=== PATIENT | female | born 1940 | race Caucasian/White ===

== ENCOUNTER 2019-10-05 09:54 | Emergency (ER) | payer MEDICARE, OTHER ==
[~2019-10-05] VITALS: Ht 162.6 cm; Wt 54.4 kg
--- NOTE | 2019-10-05 09:58 | NUR ---
Dr. Borges at bedside for MSE
--- NOTE | 2019-10-05 10:05 | NUR ---
Patient ambulating with steady gait. A&O x4. [place] speaking only. Daughter at bedside to translate for patient. c/o CP that started today. pain does not radiate. Daughter also states that patient has been having SOB and weakness for the past couple of days. Patient able to make needs known / follow commands. cough noted as well but per daughter, patient is a smoker and cough has been persistent and not getting worse. Breathing even and unlabored. Denies any N / V / D, COBB, Blurred vision. Safety precautions implemented. Bed low, S/r up x2
[2019-10-05] MEDS ORDERED: LEVO25TA9 PO (10:13)
[2019-10-05] MEDS ORDERED: ALPR0.25 PO (10:13)
[2019-10-05] MEDS ORDERED: OLME20TA13 PO (10:13)
[2019-10-05 10:27] LABS: POTASSIUM 4.1 mmol/L (3.5-5.1)
[2019-10-05 10:33] LABS: BASOPHILS % (AUTO) 0.5 % (0.0-2.0); EOSINOPHILS % (AUTO) 0.8 % (0.0-7.0); HEMATOCRIT 36.6 % (31.2-41.9); HEMOGLOBIN 12.6 g/dL (10.9-14.3); LYMPHOCYTES # (AUTO) 0.8 K/uL (20.0-40.0); LYMPHOCYTES % (AUTO) 20.1 % (20.5-51.5); MEAN CORPUSCULAR HEMOGLOBIN 35.7 uug (24.7-32.8); MEAN CORPUSCULAR HGB CONC 34 g/dL (32.3-35.6); MONOCYTES # (AUTO) 0.4 K/uL (2.0-10.0); MONOCYTES % (AUTO) 9.9 % (0.0-11.0); NEUTROPHILS # (AUTO) 2.9 K/uL (1.8-8.9); NEUTROPHILS % (AUTO) 68.7 % (38.5-71.5); PLATELET COUNT (AUTO) 214 K/uL (179-408); RED BLOOD CELL COUNT(AUTO) 3.52 MIL/uL (3.63-4.92); WHITE BLOOD COUNT (AUTO) 4.2 K/uL (3.8-11.8)
[2019-10-05 10:41] LABS: BILIRUBIN,DIRECT 0.2 mg/dL (0.0-0.2); BILIRUBIN,TOTAL 0.7 mg/dL (0.2-1.0); TOTAL PROTEIN, SERUM 8.7 g/dL (6.4-8.2)
[2019-10-05 10:50] LABS: FERRITIN 184 ng/mL (8-252); LACTATE DEHYDROGENASE 130 U/L (81-234)
[2019-10-05 10:57] LABS: CREATINE KINASE, TOTAL 43 U/L (26-192)
[2019-10-05] MEDS ORDERED: IV NORMAL SALINE 500 ML IV ONE (11:00)
[2019-10-05] MEDS ORDERED: ASPIRIN 325 MG TABLET PO ONE (11:45)
--- NOTE | 2019-10-05 11:45 | NUR ---
Per daughter at bedside, patient denies any chest pain at this time, just slight weakness and dizziness.
[2019-10-05] MEDS ORDERED: ASPIRIN 325 MG TABLET ONE (11:50)
[2019-10-05] MEDS ORDERED: MECLIZINE HCL 25 MG TABLET ONE (11:59)
[2019-10-05] MEDS ORDERED: MECLIZINE HCL 25 MG TABLET PO ONE (12:00)
--- NOTE | 2019-10-05 12:12 | NUR ---
Patient taken to CT scan in stable condition
--- NOTE | 2019-10-05 12:24 | NUR ---
Patient back from CT scan
--- NOTE | 2019-10-05 14:05 | NUR ---
IV removed. Catheter intact and site benign. Pressure and 4x4 gauze applied to site. No bleeding noted. Patient does not wish to proceed with medical care recommended by Dr. Borges. Patient given information related to possible complications, up to and including , which could occur as a result of leaving the hospital at this time. Patient verbalizes understanding of risks involved due to leaving against medical advice. Patient has signed AMA form. Patient ambulating with steady gait. NAD noted
[2019-10-05 14:23] VITALS: BP 150/79
== END 2019-10-05 14:05 | disposition left against medical advice (07) ==
LOC: ER 09:54
DX: R07.2 Precordial pain (principal); R42 Dizziness and giddiness; F17.210 Nicotine dependence, cigarettes, uncomplicated; Z20.828 Contact with and (suspected) exposure to other viral communicable diseases; I70.0 Atherosclerosis of aorta; R94.4 Abnormal results of kidney function studies
CPT/HCPCS: 70030-TC; 70450; 71045; 71250; 83605; 83615; 84443; 85025; 85730; 86140; 87040; 87400; 93005; A4663; J7040; J8597; U0003-CS

== ENCOUNTER 2024-07-10 18:16 | Inpatient (IN) | payer MEDICARE, OTHER ==
[~2024-07-10] VITALS: Ht 154.9 cm; Wt 55.8 kg
[~2024-07-10 18:16] MED LIST: ALPR0.25 PO; LEVO25TA9 PO; OLME20TA13 PO
[2024-07-10] MEDS ORDERED: MEMA1CAP4 PO (18:39)
[2024-07-10] MEDS ORDERED: FOLI1TAB27 PO (18:39)
[2024-07-10] MEDS ORDERED: OLME1TAB92 PO (18:39)
[2024-07-10] MEDS ORDERED: ICOS1CAP PO (18:39)
[2024-07-10] MEDS ORDERED: LEVO100T10 PO (18:39)
[2024-07-10] MEDS ORDERED: ASPI-869 PO (18:39)
[2024-07-10 19:10] LABS: BASOPHILS % (AUTO) 1.2 % (0.0-2.0); EOSINOPHILS % (AUTO) 0.8 % (0.0-7.0); HEMATOCRIT 35.4 % (31.2-41.9); HEMOGLOBIN 11.9 g/dL (10.9-14.3); LYMPHOCYTES # (AUTO) 0.6 K/uL (0.8-4.8); LYMPHOCYTES % (AUTO) 16.4 % (20.5-51.5); MEAN CORPUSCULAR HEMOGLOBIN 36.4 uug (24.7-32.8); MEAN CORPUSCULAR HGB CONC 34 g/dL (32.3-35.6); MEAN CORPUSCULAR VOLUME 108.1 fL (75.5-95.3); MONOCYTES # (AUTO) 0.4 K/uL (0.1-1.30); MONOCYTES % (AUTO) 11.3 % (0.0-11.0); NEUTROPHILS # (AUTO) 2.6 K/uL (1.8-8.9); NEUTROPHILS % (AUTO) 70.3 % (38.5-71.5); PLATELET COUNT (AUTO) 165 K/uL (179-408); RED BLOOD CELL COUNT(AUTO) 3.27 MIL/uL (3.63-4.92); RED CELL DISTRIBUTION WIDTH 12.7 % (12.3-17.7); WHITE BLOOD COUNT (AUTO) 3.7 K/uL (3.8-11.8)
[2024-07-10 19:27] LABS: DIFFERENTIAL COMMENT 1
[2024-07-10] MEDS ORDERED: ONDANSETRON 4 MG/2 ML VIAL ONE (19:28)
[2024-07-10 19:32] LABS: CALCIUM 9.9 mg/dL (8.5-10.1); CARBON DIOXIDE 26 mmol/L (21-32); CHLORIDE 105 mmol/L (98-107); CREATININE 1.7 mg/dL (0.6-1.3); GLUCOSE 101 mg/dL (74-106); POTASSIUM 3.1 mmol/L (3.5-5.1); SODIUM SERUM 144 mmol/L (136-145); UREA NITROGEN, BLOOD 70 mg/dL (7-18)
[2024-07-10 19:33] LABS: AMMONIA < 10 umol/L (11-32)
[2024-07-10 19:37] LABS: ETHANOL < 3 MG/DL (0-10)
[2024-07-10 19:40] LABS: ALANINE AMINOTRANSFERASE 22 U/L (14-59); ALBUMIN 3.7 g/dL (3.4-5.0); ALKALINE PHOSPHATASE 64 U/L (50-136); ASPARTATE AMINOTRANSFERASE 25 U/L (15-37); BILIRUBIN,DIRECT 0.2 mg/dL (0.0-0.2); BILIRUBIN,TOTAL 0.8 mg/dL (0.2-1.0); MAGNESIUM 2.2 mg/dL (1.8-2.4)
[2024-07-10] MEDS: ONDANSETRON 4 MG/2 ML VIAL IV ONE (19:55)
[2024-07-10] MEDS: IV NORMAL SALINE 1000 ML BAG IV ONE (20:00)
[2024-07-10 20:02] LABS: THYROID STIMULATING HORMONE 0.392 mIU/mL (0.358-3.740)
[2024-07-10 22:01] LABS: *BILIRUBIN,URIN NEGATIVE (NEGATIVE); *COLOR,URINE YELLOW (YELLOW); *KETONES,URINE 2+ (NEGATIVE); *PROTEIN,URINE 2+ (NEGATIVE); *UROBILINOGEN,URINE 0.2 E.U./dl (NORMAL); LEUKOCYTE ESTERASE ,URINE NEGATIVE (NEGATIVE); NITRITE, URINE NEGATIVE (NEGATIVE); PH,URINE 5.5 (5.0-8.0); UGLUCOSE NEGATIVE (NEGATIVE)
[2024-07-10 22:06] LABS: *BLOOD, URINE TRACE (NEGATIVE); *CLARITY,URINE SLIGHTLY CLOUDY (CLEAR)
[2024-07-10 22:16] LABS: BACTERIA,URINE FEW /HPF (NONE SEEN); RBC,URINE 0-3 /HPF (0-3); SQUAMOUS EPITHELIAL CELL,UR MODERATE /HPF (NONE SEEN)
[2024-07-10] MEDS ORDERED: ONDANSETRON 4 MG/2 ML VIAL IV PRN (23:15)
[2024-07-10] MEDS ORDERED: ALBUTEROL SULFATE 2.5 MG/ 0.5 ML NEBU NEB PRN (23:15)
[2024-07-10] MEDS ORDERED: ACETAMINOPHEN 325 MG TABLET PO PRN (23:15)
[2024-07-11 00:45] VITALS: BP 120/73; TEMP 98
[2024-07-11] MEDS ORDERED: CEFTRIAXONE /D5W 50ML IVPB **ER PYXIS IV ONE (01:17)
[2024-07-11] MEDS: CEFTRIAXONE 1 G in IV DEXTROSE 5% 50 ML IV SCH (01:30)
[2024-07-11 04:00] VITALS: BP 96/65; TEMP 98.6; O2SAT 99
[2024-07-11] MEDS ORDERED: ALBUTEROL SULFATE 2.5 MG/3 ML NEBU NEB PRN (05:00)
[2024-07-11 08:00] VITALS: BP 116/57; TEMP 97.5; O2SAT 97
[2024-07-11 08:16] LABS: EOSINOPHILS # (AUTO) 0.1 K/uL (0.0-0.7); EOSINOPHILS % (AUTO) 1.5 % (0.0-7.0); HEMATOCRIT 35.9 % (31.2-41.9); HEMOGLOBIN 12.2 g/dL (10.9-14.3); LYMPHOCYTES # (AUTO) 0.7 K/uL (0.8-4.8); LYMPHOCYTES % (AUTO) 20.3 % (20.5-51.5); MEAN CORPUSCULAR HEMOGLOBIN 36.6 uug (24.7-32.8); MEAN CORPUSCULAR HGB CONC 34 g/dL (32.3-35.6); MONOCYTES # (AUTO) 0.4 K/uL (0.1-1.30); MONOCYTES % (AUTO) 12.8 % (0.0-11.0); NEUTROPHILS # (AUTO) 2.3 K/uL (1.8-8.9); NEUTROPHILS % (AUTO) 64.4 % (38.5-71.5); PLATELET COUNT (AUTO) 150 K/uL (179-408); RED BLOOD CELL COUNT(AUTO) 3.32 MIL/uL (3.63-4.92); RED CELL DISTRIBUTION WIDTH 12.8 % (12.3-17.7); WHITE BLOOD COUNT (AUTO) 3.5 K/uL (3.8-11.8)
[2024-07-11 08:26] LABS: DIFFERENTIAL COMMENT 1
[2024-07-11 08:51] LABS: IRON, SERUM 58 ug/dL (50-175)
[2024-07-11] MEDS ORDERED: DONEPEZIL HCL PO SCH (09:00)
[2024-07-11] MEDS ORDERED: MEMANTINE HCL PO SCH (09:00)
[2024-07-11] MEDS ORDERED: [UNRECOGNIZED DRUG - OTHER] PO SCH (09:00)
[2024-07-11 09:13] LABS: ALANINE AMINOTRANSFERASE 27 U/L (14-59); ALBUMIN 3.4 g/dL (3.4-5.0); ALKALINE PHOSPHATASE 65 U/L (50-136); ASPARTATE AMINOTRANSFERASE 25 U/L (15-37); BILIRUBIN,TOTAL 0.8 mg/dL (0.2-1.0); CALCIUM 9.2 mg/dL (8.5-10.1); CARBON DIOXIDE 27 mmol/L (21-32); CHLORIDE 106 mmol/L (98-107); CHOLESTEROL 154 mg/dL (<200); CREATININE 1.3 mg/dL (0.6-1.3); GLUCOSE 96 mg/dL (74-106); HDL CHOLESTEROL 40 mg/dL (40-60); MAGNESIUM 1.8 mg/dL (1.8-2.4); PHOSPHOROUS 2.7 mg/dL (2.5-4.9); POTASSIUM 3.1 mmol/L (3.5-5.1); SODIUM SERUM 142 mmol/L (136-145); TOTAL PROTEIN, SERUM 7.8 g/dL (6.4-8.2); TRIGLYCERIDES 98 MG/DL (30-150); UREA NITROGEN, BLOOD 50 mg/dL (7-18)
[2024-07-11] MEDS: PANTOPRAZOLE SODIUM 40 MG TABLET.DR PO SCH (09:14)
[2024-07-11] MEDS: DONEPEZIL 10 MG TABLET PO SCH (09:14)
[2024-07-11] MEDS: FOLIC ACID 1 MG TABLET PO SCH (09:14)
[2024-07-11] MEDS: MEMANTINE HCL 5 MG TABLET PO SCH (09:14)
[2024-07-11] MEDS: CYANOCOBALAMIN 1000 MCG/ML VIAL IM SCH (10:13)
[2024-07-11 10:35] LABS: LIPASE 122 U/L (16-77)
[2024-07-11] MEDS ORDERED: EVOL140P3 SQ (10:52)
[2024-07-11] MEDS ORDERED: AMLO-212 PO (10:52)
[2024-07-11] MEDS ORDERED: PROP10TA10 PO (10:52)
[2024-07-11] MEDS ORDERED: TRAZ-182 PO (10:52)
[2024-07-11] MEDS ORDERED: ESCI10TA PO (10:52)
[2024-07-11 10:54] LABS: THYROID STIMULATING HORMONE 0.288 mIU/mL (0.358-3.740)
[2024-07-11 12:00] VITALS: BP 92/59; TEMP 97.3; O2SAT 98
[2024-07-11] MEDS: PROPRANOLOL HCL 10 MG TABLET PO SCH (12:15)
[2024-07-11] MEDS: POTASSIUM CHLORIDE 20 MEQ TAB.PRT.SR PO ONE (13:15)
[2024-07-11 15:00] VITALS: BP 85/41; TEMP 97.8; O2SAT 97
[2024-07-11] MEDS: IV NORMAL SALINE 500 ML IV ONE (15:52)
[2024-07-11 19:00] VITALS: BP 90/53; TEMP 98.2; O2SAT 99
[2024-07-11] MEDS ORDERED: DOCUSATE SODIUM 250 MG CAPSULE PO SCH (21:00)
[2024-07-11] MEDS: DOCUSATE SODIUM 100 MG CAPSULE PO SCH (21:01)
[2024-07-11] MEDS: TRAZODONE 50 MG TABLET PO SCH (21:01)
[2024-07-12] VITALS: BP 113/46; TEMP 97.4; O2SAT 98
[2024-07-12] MEDS: TEMAZEPAM 15 MG CAPSULE PO PRN (02:42)
[2024-07-12 05:03] VITALS: BP 107/62; TEMP 97.4; O2SAT 96
[2024-07-12 07:49] VITALS: BP 111/52; TEMP 97.7; O2SAT 97
[2024-07-12] MEDS: ESCITALOPRAM OXALATE 10 MG TABLET PO SCH (08:20)
[2024-07-12] MEDS: ASPIRIN EC 81 MG TABLET.DR PO SCH (08:20)
[2024-07-12] MEDS: AMLODIPINE 5 MG TABLET PO SCH (08:21)
[2024-07-12] MEDS ORDERED: ASPIRIN EC 325 MG TABLET.DR PO SCH (09:00)
[2024-07-12 09:51] LABS: BASOPHILS % (AUTO) 0.7 % (0.0-2.0); EOSINOPHILS # (AUTO) 0.1 K/uL (0.0-0.7); HEMATOCRIT 36.9 % (31.2-41.9); HEMOGLOBIN 12.4 g/dL (10.9-14.3); LYMPHOCYTES # (AUTO) 0.9 K/uL (0.8-4.8); LYMPHOCYTES % (AUTO) 22.4 % (20.5-51.5); MEAN CORPUSCULAR HEMOGLOBIN 36.1 uug (24.7-32.8); MEAN CORPUSCULAR HGB CONC 34 g/dL (32.3-35.6); MEAN CORPUSCULAR VOLUME 107.6 fL (75.5-95.3); MONOCYTES # (AUTO) 0.4 K/uL (0.1-1.30); MONOCYTES % (AUTO) 9.6 % (0.0-11.0); NEUTROPHILS # (AUTO) 2.5 K/uL (1.8-8.9); NEUTROPHILS % (AUTO) 65.3 % (38.5-71.5); PLATELET COUNT (AUTO) 166 K/uL (179-408); RED BLOOD CELL COUNT(AUTO) 3.43 MIL/uL (3.63-4.92); RED CELL DISTRIBUTION WIDTH 12.8 % (12.3-17.7); WHITE BLOOD COUNT (AUTO) 3.8 K/uL (3.8-11.8)
[2024-07-12 10:00] LABS: CALCIUM 9.5 mg/dL (8.5-10.1); CARBON DIOXIDE 24 mmol/L (21-32); CHLORIDE 104 mmol/L (98-107); CREATININE 1.1 mg/dL (0.6-1.3); GLUCOSE 98 mg/dL (74-106); POTASSIUM 3.2 mmol/L (3.5-5.1); SODIUM SERUM 141 mmol/L (136-145); UREA NITROGEN, BLOOD 36 mg/dL (7-18)
[2024-07-12 10:26] LABS: DIFFERENTIAL COMMENT 1
[2024-07-12 11:53] VITALS: BP 99/60; TEMP 98.4; O2SAT 96
[2024-07-12 16:30] VITALS: BP 132/64; TEMP 98.1; O2SAT 100
[2024-07-12 19:00] VITALS: BP 107/61; TEMP 97.7; O2SAT 95
[2024-07-12] MEDS: IV NS 1000 ML 1,000 ML IV PRN (23:06)
[2024-07-13 06:00] VITALS: BP 92/45; TEMP 98; O2SAT 96
[2024-07-13 06:45] VITALS: BP 100/52; TEMP 98; O2SAT 96
[2024-07-13 06:47] LABS: BASOPHILS % (AUTO) 0.8 % (0.0-2.0); EOSINOPHILS # (AUTO) 0.1 K/uL (0.0-0.7); EOSINOPHILS % (AUTO) 2.9 % (0.0-7.0); HEMATOCRIT 30.9 % (31.2-41.9); HEMOGLOBIN 10.6 g/dL (10.9-14.3); LYMPHOCYTES # (AUTO) 0.9 K/uL (0.8-4.8); LYMPHOCYTES % (AUTO) 21.1 % (20.5-51.5); MEAN CORPUSCULAR HEMOGLOBIN 36.9 uug (24.7-32.8); MEAN CORPUSCULAR HGB CONC 34 g/dL (32.3-35.6); MEAN CORPUSCULAR VOLUME 107.9 fL (75.5-95.3); MONOCYTES # (AUTO) 0.5 K/uL (0.1-1.30); MONOCYTES % (AUTO) 12.9 % (0.0-11.0); NEUTROPHILS # (AUTO) 2.5 K/uL (1.8-8.9); NEUTROPHILS % (AUTO) 62.3 % (38.5-71.5); PLATELET COUNT (AUTO) 139 K/uL (179-408); RED BLOOD CELL COUNT(AUTO) 2.86 MIL/uL (3.63-4.92); RED CELL DISTRIBUTION WIDTH 12.6 % (12.3-17.7); WHITE BLOOD COUNT (AUTO) 4.1 K/uL (3.8-11.8)
[2024-07-13 07:00] LABS: DIFFERENTIAL COMMENT 1
[2024-07-13 07:06] LABS: CALCIUM 8.7 mg/dL (8.5-10.1); CARBON DIOXIDE 25 mmol/L (21-32); CHLORIDE 109 mmol/L (98-107); CREATININE 1.3 mg/dL (0.6-1.3); GLUCOSE 95 mg/dL (74-106); MAGNESIUM 1.7 mg/dL (1.8-2.4); PHOSPHOROUS 3.7 mg/dL (2.5-4.9); POTASSIUM 3.4 mmol/L (3.5-5.1); SODIUM SERUM 142 mmol/L (136-145); UREA NITROGEN, BLOOD 28 mg/dL (7-18)
[2024-07-13 07:59] VITALS: BP 103/55; TEMP 98.1; O2SAT 99
[2024-07-13] MEDS: MAGNESIUM OXIDE 400 MG TABLET PO ONE (09:40)
[2024-07-13] MEDS: POTASSIUM CHLORIDE 20 MEQ TAB.PRT.SR PO ONE (09:40)
[2024-07-13 11:47] VITALS: BP 104/46; TEMP 98; O2SAT 99
[2024-07-13] MEDS ORDERED: MECO10005 PO (12:55)
[2024-07-13 15:48] VITALS: BP 105/47; TEMP 97.9; O2SAT 99
[2024-07-13 17:00] VITALS: BP 105/47
[2024-07-13] MEDS ORDERED: PANT40TA2 PO (20:39)
[2024-07-13] MEDS ORDERED: ASPI81TA31 PO (20:39)
[2024-07-13] MEDS ORDERED: MEMA5TAB42 PO (20:39)
[2024-07-13] MEDS ORDERED: ONDA4TAB5 IV (20:39)
[2024-07-13] MEDS ORDERED: TEMA15CA5 PO (20:39)
[2024-07-13] MEDS ORDERED: CYAN100085 IM (20:39)
[2024-07-13] MEDS ORDERED: DONE10TA11 PO (20:39)
[2024-07-13] MEDS ORDERED: DOCU-141 PO (20:39)
[2024-07-13] MEDS ORDERED: FOLI1TAB94 PO (20:39)
[2024-07-13] MEDS ORDERED: ALBU2.5V38 NEB (20:39)
[2024-07-13] MEDS ORDERED: ACET325T53 PO (20:39)
== END 2024-07-13 18:28 | DRG 682 ==
LOC: ER 18:47 → MEDSURG3 20:50 → TELE3 07-11 00:35 → MEDSURG3 07-12 10:56
PROVIDERS: ADMIT Internal Medicine; ATTEND Internal Medicine
DX: N17.0 Acute kidney failure with tubular necrosis (principal); G93.41 Metabolic encephalopathy; I21.4 Non-ST elevation (NSTEMI) myocardial infarction; F03.93 Unspecified dementia, unspecified severity, with mood disturbance; E86.0 Dehydration; D51.9 Vitamin B12 deficiency anemia, unspecified; E87.6 Hypokalemia; E78.5 Hyperlipidemia, unspecified; E89.0 Postprocedural hypothyroidism; Z79.890 Hormone replacement therapy; F17.210 Nicotine dependence, cigarettes, uncomplicated; Z91.199 Patient's noncompliance with other medical treatment and regimen due to unspecified reason; I70.0 Atherosclerosis of aorta; I12.9 Hypertensive chronic kidney disease with stage 1 through stage 4 chronic kidney disease, or unspecified chronic kidney disease; N18.9 Chronic kidney disease, unspecified; R79.89 Other specified abnormal findings of blood chemistry; D72.819 Decreased white blood cell count, unspecified; D69.6 Thrombocytopenia, unspecified; K57.30 Diverticulosis of large intestine without perforation or abscess without bleeding; M51.35 Other intervertebral disc degeneration, thoracolumbar region; I25.10 Atherosclerotic heart disease of native coronary artery without angina pectoris; F32.A Depression, unspecified; Z79.899 Other long term (current) drug therapy
CPT/HCPCS: 36415; 70450; 71045; 83550; 83690; 83735; 84100; 84443; 84484; 85025; 85730; 87086; 93307; A4606; A4663; G0378; G0480; J0696; J2405; J3420; J7040

== ENCOUNTER 2024-07-13 11:31 | Inpatient (IN) | payer MEDICARE, OTHER ==
[2024-07-12 21:06] VITALS: BP 132/64
[2024-07-12 21:45] VITALS: BP 132/64
[~2024-07-13] VITALS: Ht 154.9 cm; Wt 54.2 kg
[~2024-07-13 11:31] MED LIST changes: -ALPR0.25 PO; +AMLO-212 PO; +ASPI-869 PO; +ESCI10TA PO; +EVOL140P3 SQ; +FOLI1TAB27 PO; +ICOS1CAP PO; +LEVO100T10 PO; -LEVO25TA9 PO; +MEMA1CAP4 PO; +OLME1TAB92 PO; -OLME20TA13 PO; +PROP10TA10 PO; +TRAZ-182 PO
[2024-07-13] MEDS ORDERED: MECO10005 PO (12:55)
[2024-07-13] MEDS ORDERED: REMEDY ESSENTIAL ZINC PASTE 113 GM TOP PRN (20:15)
[2024-07-13] MEDS ORDERED: ONDA4TAB5 IV (20:39)
[2024-07-13] MEDS ORDERED: FOLI1TAB94 PO (20:39)
[2024-07-13] MEDS ORDERED: PANT40TA2 PO (20:39)
[2024-07-13] MEDS ORDERED: ALBU2.5V38 NEB (20:39)
[2024-07-13] MEDS ORDERED: ASPI81TA31 PO (20:39)
[2024-07-13] MEDS ORDERED: MEMA5TAB42 PO (20:39)
[2024-07-13] MEDS ORDERED: CYAN100085 IM (20:39)
[2024-07-13] MEDS ORDERED: DONE10TA11 PO (20:39)
[2024-07-13] MEDS ORDERED: DOCU-141 PO (20:39)
[2024-07-13] MEDS ORDERED: TEMA15CA5 PO (20:39)
[2024-07-13] MEDS ORDERED: ACET325T53 PO (20:39)
[2024-07-13 20:54] VITALS: BP 124/55; TEMP 98.2; O2SAT 99
[2024-07-13] MEDS ORDERED: ALBUTEROL SULFATE 2.5 MG/3 ML NEBU NEB PRN (21:00)
[2024-07-13] MEDS ORDERED: TEMAZEPAM 15 MG CAPSULE PO PRN (21:00)
[2024-07-13] MEDS ORDERED: ONDANSETRON HCL 4 MG TABLET PO PRN (21:00)
[2024-07-13] MEDS ORDERED: ACETAMINOPHEN 325 MG TABLET-SA PATIENTS-PAIN ONLY PO PRN (21:00)
[2024-07-13] MEDS: DOCUSATE SODIUM 100 MG CAPSULE PO SCH (21:41)
[2024-07-13] MEDS: TRAZODONE 50 MG TABLET PO SCH (21:41)
[2024-07-14] MEDS ORDERED: ACETAMINOPHEN 325 MG TABLET PO PRN (05:30)
[2024-07-14 06:03] VITALS: BP 104/42; TEMP 98.1; O2SAT 97
[2024-07-14 08:55] VITALS: BP 101/52; TEMP 97.8; O2SAT 98
[2024-07-14] MEDS: PROPRANOLOL HCL 10 MG TABLET PO SCH (09:00)
[2024-07-14] MEDS: FOLIC ACID 1 MG TABLET PO SCH (09:06)
[2024-07-14] MEDS: ESCITALOPRAM OXALATE 10 MG TABLET PO SCH (09:06)
[2024-07-14] MEDS: MEMANTINE HCL 5 MG TABLET PO SCH (09:06)
[2024-07-14] MEDS: ASPIRIN 81 MG TAB.CHEW PO SCH (09:06)
[2024-07-14] MEDS: PANTOPRAZOLE SODIUM 40 MG TABLET.DR PO SCH (09:07)
[2024-07-14] MEDS: DONEPEZIL 10 MG TABLET PO SCH (09:08)
[2024-07-14 16:17] VITALS: BP 120/48; TEMP 98.1; O2SAT 98
[2024-07-14 19:56] VITALS: BP 98/46; TEMP 98; O2SAT 98
[2024-07-15 06:00] VITALS: BP 110/52; TEMP 98.6; O2SAT 96
[2024-07-15] MEDS: PANTOPRAZOLE SODIUM 40 MG TABLET.DR PO SCH (06:14)
[2024-07-15 08:00] VITALS: BP 103/54; TEMP 97.2; O2SAT 97
[2024-07-15] MEDS: CYANOCOBALAMIN 1,000 MCG TABLET PO SCH (08:26)
[2024-07-15 08:41] LABS: CALCIUM 9.1 mg/dL (8.5-10.1); CARBON DIOXIDE 25 mmol/L (21-32); CHLORIDE 108 mmol/L (98-107); GLUCOSE 93 mg/dL (74-106); MAGNESIUM 1.9 mg/dL (1.8-2.4); POTASSIUM 3.8 mmol/L (3.5-5.1); SODIUM SERUM 141 mmol/L (136-145); UREA NITROGEN, BLOOD 19 mg/dL (7-18)
[2024-07-15 08:54] LABS: THYROID STIMULATING HORMONE 0.279 mIU/mL (0.358-3.740)
[2024-07-15 15:57] VITALS: BP 96/51; TEMP 97.8; O2SAT 97
[2024-07-15] MEDS: ENSURE ENLIVE (VAN) 240 ML LIQUID PO SCH (17:09)
[2024-07-15 20:16] VITALS: BP 110/53; TEMP 98; O2SAT 99
[2024-07-16 07:02] VITALS: BP 104/45; TEMP 98.2; O2SAT 98
[2024-07-16 07:45] VITALS: BP 111/45; TEMP 97.8; O2SAT 98
[2024-07-16 08:26] LABS: BASOPHILS % (AUTO) 0.7 % (0.0-2.0); EOSINOPHILS # (AUTO) 0.1 K/uL (0.0-0.7); EOSINOPHILS % (AUTO) 1.4 % (0.0-7.0); HEMOGLOBIN 10.7 g/dL (10.9-14.3); LYMPHOCYTES # (AUTO) 0.7 K/uL (0.8-4.8); LYMPHOCYTES % (AUTO) 14.1 % (20.5-51.5); MEAN CORPUSCULAR HEMOGLOBIN 36.5 uug (24.7-32.8); MEAN CORPUSCULAR HGB CONC 34 g/dL (32.3-35.6); MEAN CORPUSCULAR VOLUME 105.9 fL (75.5-95.3); MONOCYTES # (AUTO) 0.5 K/uL (0.1-1.30); MONOCYTES % (AUTO) 10.4 % (0.0-11.0); NEUTROPHILS # (AUTO) 3.7 K/uL (1.8-8.9); NEUTROPHILS % (AUTO) 73.4 % (38.5-71.5); PLATELET COUNT (AUTO) 152 K/uL (179-408); RED BLOOD CELL COUNT(AUTO) 2.93 MIL/uL (3.63-4.92); RED CELL DISTRIBUTION WIDTH 12.6 % (12.3-17.7); WHITE BLOOD COUNT (AUTO) 5.1 K/uL (3.8-11.8)
[2024-07-16 08:32] LABS: CALCIUM 9.1 mg/dL (8.5-10.1); CARBON DIOXIDE 27 mmol/L (21-32); CHLORIDE 107 mmol/L (98-107); CREATININE 0.9 mg/dL (0.6-1.3); GLUCOSE 97 mg/dL (74-106); POTASSIUM 4.2 mmol/L (3.5-5.1); SODIUM SERUM 142 mmol/L (136-145); UREA NITROGEN, BLOOD 22 mg/dL (7-18)
[2024-07-16 08:35] LABS: DIFFERENTIAL COMMENT 1
[2024-07-16 16:16] VITALS: BP 104/39; TEMP 98.6; O2SAT 98
[2024-07-16 20:09] VITALS: BP 103/51; TEMP 98.3; O2SAT 98
[2024-07-16] MEDS ORDERED: TRAZODONE 50 MG TABLET PO PRN (21:00)
[2024-07-17 05:38] VITALS: BP 105/52; TEMP 98.2; O2SAT 98
[2024-07-17] MEDS: LEVOTHYROXINE SODIUM 100 MCG TABLET PO SCH (06:12)
[2024-07-17 07:45] VITALS: BP 111/57; TEMP 98.4; O2SAT 98
[2024-07-17 16:01] VITALS: BP 112/61; TEMP 98.6; O2SAT 98
[2024-07-17 20:06] VITALS: BP 108/48; TEMP 98.4; O2SAT 100
[2024-07-18 06:05] VITALS: BP 117/52; TEMP 98.5; O2SAT 100
[2024-07-18 08:00] VITALS: BP 103/56; TEMP 97.7; TEMP 98.5; O2SAT 100; O2SAT 78
[2024-07-18 15:52] VITALS: BP 101/64; TEMP 97.2; O2SAT 98
[2024-07-18 20:00] VITALS: BP 128/66; TEMP 97.8; O2SAT 100
[2024-07-19 06:00] VITALS: BP 103/40; TEMP 97.9; O2SAT 98
[2024-07-19] MEDS: LEVOTHYROXINE SODIUM 75 MCG TABLET PO SCH (06:15)
[2024-07-19] MEDS ORDERED: LEVOTHYROXINE SODIUM 100 MCG TABLET PO SCH (07:00)
[2024-07-19 07:04] LABS: BASOPHILS % (AUTO) 0.7 % (0.0-2.0); EOSINOPHILS # (AUTO) 0.1 K/uL (0.0-0.7); EOSINOPHILS % (AUTO) 2.5 % (0.0-7.0); HEMATOCRIT 27.4 % (31.2-41.9); HEMOGLOBIN 9.5 g/dL (10.9-14.3); LYMPHOCYTES # (AUTO) 0.8 K/uL (0.8-4.8); LYMPHOCYTES % (AUTO) 21.6 % (20.5-51.5); MEAN CORPUSCULAR HEMOGLOBIN 36.4 uug (24.7-32.8); MEAN CORPUSCULAR HGB CONC 35 g/dL (32.3-35.6); MONOCYTES # (AUTO) 0.6 K/uL (0.1-1.30); NEUTROPHILS # (AUTO) 2.1 K/uL (1.8-8.9); NEUTROPHILS % (AUTO) 58.2 % (38.5-71.5); PLATELET COUNT (AUTO) 157 K/uL (179-408); RED BLOOD CELL COUNT(AUTO) 2.61 MIL/uL (3.63-4.92); RED CELL DISTRIBUTION WIDTH 12.6 % (12.3-17.7); WHITE BLOOD COUNT (AUTO) 3.5 K/uL (3.8-11.8)
[2024-07-19 07:05] LABS: DIFFERENTIAL COMMENT 1
[2024-07-19 07:09] LABS: CARBON DIOXIDE 27 mmol/L (21-32); CHLORIDE 104 mmol/L (98-107); GLUCOSE 86 mg/dL (74-106); SODIUM SERUM 138 mmol/L (136-145); UREA NITROGEN, BLOOD 21 mg/dL (7-18)
[2024-07-19 07:32] LABS: EOSINOPHILS % (MANUAL) 3 % (0-8); LYMPHOCYTES % (MANUAL) 22 % (20-40); MONOCYTES % (MANUAL) 17 % (2-10); NEUTROPHILS % (MANUAL) 58 % (42-75); PLATELET ESTIMATE DECREASED
[2024-07-19 08:00] VITALS: BP_SYST 106; BP_SYST 98; BP_DIAS 31; BP_DIAS 32; TEMP 97.1; TEMP 97.2; O2SAT 97
[2024-07-19 16:19] VITALS: BP 135/56; TEMP 97.6; O2SAT 97
[2024-07-19 20:59] VITALS: BP 98/53; TEMP 98.8; O2SAT 97
[2024-07-20 06:00] VITALS: BP 102/42; TEMP 98.6; O2SAT 97
[2024-07-20 07:53] VITALS: BP 94/47; TEMP 97.1; O2SAT 93
[2024-07-20 16:10] VITALS: BP 96/44; TEMP 97; O2SAT 94
[2024-07-20 21:40] VITALS: BP 108/57; TEMP 98.1; O2SAT 98
[2024-07-21 06:41] VITALS: BP 108/59; TEMP 98.5; O2SAT 95
[2024-07-21 08:00] VITALS: BP 106/58; TEMP 98.5; O2SAT 98
[2024-07-21 16:02] VITALS: BP 115/55; TEMP 98.2; O2SAT 96
[2024-07-21 20:00] VITALS: BP 101/60; TEMP 98.4; O2SAT 95
[2024-07-22 06:00] VITALS: BP 103/46; TEMP 98.4; O2SAT 95
[2024-07-22 08:05] VITALS: O2SAT 96
[2024-07-22 09:10] VITALS: BP 111/65; TEMP 98.5; O2SAT 96
[2024-07-22 15:34] VITALS: BP 107/57; TEMP 97.7; O2SAT 97
[2024-07-22 21:54] VITALS: BP 116/49; TEMP 98.3; O2SAT 95
[2024-07-23] MEDS: LEVOTHYROXINE SODIUM 75 MCG TABLET PO SCH (06:19)
[2024-07-23 06:32] VITALS: BP 92/42; TEMP 98; O2SAT 93
[2024-07-23 08:00] VITALS: BP 118/52; TEMP 97.6; O2SAT 97
[2024-07-23 16:00] VITALS: BP 101/51; TEMP 97.2; O2SAT 97
[2024-07-23 21:08] VITALS: BP 121/65; TEMP 98.8; O2SAT 93
[2024-07-24 07:25] VITALS: BP 96/41; TEMP 98; O2SAT 95
[2024-07-24 09:00] VITALS: BP 103/34; TEMP 97.9; O2SAT 99
[2024-07-24 16:30] VITALS: BP 108/46; TEMP 98.1; O2SAT 99
== END 2024-07-24 17:25 | disposition home health service (06) | DRG 947 ==
LOC: EDBD → MERGE 19:21
PROVIDERS: ADMIT Physical Medicine & Rehabilitation Pain Medicine; ATTEND Physical Medicine & Rehabilitation Pain Medicine
DX: R53.1 Weakness (principal); G92.8 Other toxic encephalopathy; G93.41 Metabolic encephalopathy; N17.0 Acute kidney failure with tubular necrosis; I21.4 Non-ST elevation (NSTEMI) myocardial infarction; N39.0 Urinary tract infection, site not specified; I10 Essential (primary) hypertension; Z91.148 Patient's other noncompliance with medication regimen for other reason; D64.9 Anemia, unspecified; E53.8 Deficiency of other specified B group vitamins; E89.0 Postprocedural hypothyroidism; E78.5 Hyperlipidemia, unspecified; D69.6 Thrombocytopenia, unspecified; D72.819 Decreased white blood cell count, unspecified; E05.90 Thyrotoxicosis, unspecified without thyrotoxic crisis or storm; Z87.891 Personal history of nicotine dependence; G47.10 Hypersomnia, unspecified; B96.89 Other specified bacterial agents as the cause of diseases classified elsewhere; R91.8 Other nonspecific abnormal finding of lung field; E86.0 Dehydration
CPT/HCPCS: 36415; 83735; 84443; 85025; A4663